=== PATIENT | male | born 1980 | race Caucasian/White ===

== ENCOUNTER 2017-10-13 07:40 | Emergency (ER) | payer MEDICAID ==
[2017-10-13] MEDS: ACETAMINOPHEN 500 MG TAB PO (09:04)
[2017-10-13] MEDS: IBUPROFEN 600 MG TAB PO (09:05)
== END 2017-10-13 10:34 | disposition home or self-care (01) ==
LOC: FTE 07:40
DX: J10.1 Influenza due to other identified influenza virus with other respiratory manifestations (principal)
CPT/HCPCS: 71045; 87400; 99284-25